=== PATIENT | female | born 1955 | race African-American/Black ===

== ENCOUNTER → 2023-09-14 10:52 | Outpatient (REF) | payer MEDICARE, SELFPAY | LOC: HWRAD 10:52 | PROVIDERS: ATTENDING PHYSICIAN Internal Medicine Endocrinology, Diabetes & Metabolism; FAMILY PHYSICIAN Family Medicine | DX: E04.2 Nontoxic multinodular goiter (principal); R73.9 Hyperglycemia, unspecified; E05.90 Thyrotoxicosis, unspecified without thyrotoxic crisis or storm | CPT/HCPCS: 76536 ==

== ENCOUNTER → 2023-11-23 13:32 | Outpatient (REF) | payer MEDICARE, SELFPAY | LOC: HWRAD 13:32 | PROVIDERS: ATTENDING PHYSICIAN Physician Assistant; FAMILY PHYSICIAN Family Medicine | DX: Z12.31 Encounter for screening mammogram for malignant neoplasm of breast (principal); M85.88 Other specified disorders of bone density and structure, other site; M89.9 Disorder of bone, unspecified | CPT/HCPCS: 77063; 77067; 77080 ==

== ENCOUNTER → 2024-08-30 15:04 | Outpatient (REF) | payer MEDICARE, SELFPAY | LOC: HWRAD 15:04 | PROVIDERS: ATTENDING PHYSICIAN Internal Medicine Endocrinology, Diabetes & Metabolism; FAMILY PHYSICIAN Family Medicine | DX: E04.2 Nontoxic multinodular goiter (principal); R73.9 Hyperglycemia, unspecified; E05.90 Thyrotoxicosis, unspecified without thyrotoxic crisis or storm | CPT/HCPCS: 76536 ==

== ENCOUNTER → 2025-01-18 14:48 | Outpatient (REF) | payer MEDICARE, SELFPAY | LOC: HWWDC 14:48 | PROVIDERS: ATTENDING PHYSICIAN Family Medicine | DX: Z12.31 Encounter for screening mammogram for malignant neoplasm of breast (principal) | CPT/HCPCS: 77063; 77067 ==

== ENCOUNTER 2025-01-24 06:23 | Day surgery (SDC) | payer MEDICARE, SELFPAY ==
[2025-01-24 08:03] LABS: Glucose - Point of Care 110 mg/dl (70-99)
== END 2025-01-24 09:11 | disposition home or self-care (01) ==
LOC: GI 06:23
PROVIDERS: ATTENDING PHYSICIAN Internal Medicine Gastroenterology; FAMILY PHYSICIAN Family Medicine
DX: K31.A19 Gastric intestinal metaplasia without dysplasia, unspecified site (principal); K31.89 Other diseases of stomach and duodenum; K29.50 Unspecified chronic gastritis without bleeding; K31.A15 Gastric intestinal metaplasia without dysplasia, involving multiple sites
CPT/HCPCS: 43239; 82962; 88305; 88342